=== PATIENT | female | born 1955 ===

== ENCOUNTER 2019-03-17 12:13 | Emergency (ER) | payer SELFPAY ==
[2019-03-17] MEDS ORDERED: NS 0.9% 1000 ML** 1,000 ML IV ONE (13:09)
--- NOTE | 2019-03-17 13:27 | ED ---
Complex/Multi-Sys Presentation - HPI Summary HPI Summary: 63 year old F presenting to [facility] from home where she lives with her accompanied by complains of feeling stressed, eating poorly, sleeping poorly since several months ago, worse since today 03/17/19. The patient rates the pain 0/10 in severity. Symptoms aggravated by nothing. Symptoms alleviated by nothing. Patient reports red area on her left lower abdomen from hot water bottle that she has been using to keep her abdomen warm. Patient reports depression. Patient states that Dr. Carrillo, her primary care provider, prescribed her Trintellix this week. Patient has taken a portion of 2 tabs of Trintellix twice and stopped because she didn't like the way it made her and she didn't feel that it was helping. She denies hx depression. She states that money and "things going on in the family" are making her depressed. She denies suicidal ideation and denies hx suicidal attempt. Patient states that she is eating enough. She had eggs, hot chocolate, two pieces of toast this morning which is less than she normally eats. She did not eat lunch. She denies recent weight loss. Patient has been trying to exercise. She teaches martial arts. Patient goes to work every day. Patient feels sleepy after eating and she denies abdominal pain after eating. Patient has hx trigeminal neuralgia for which she treats with acupuncture and indomethacin. However pt could not recall the name of indomethacin, and when pharmacy was called, pt has not filled the indomethacin since December 2017. Patient has hx intermittent heart murmur since childhood. Patient states she drinks 1-2 glasses of red wine once or twice a month. Patient is a former smoker who smoked 1-2 cigarettes to 1 pack per day for 20 years and quit in 1995. Patient denies illicit drug use. Pt's Surgical Hx is tonsillectomy and surgery on a hematoma on her right thigh. Patient does not know Family hx because she was adopted. Of note, came to ED room, part way into room, and pt asked to leave when I started summarizing pt' s complaints to see if he had anything to add. I was talking about pt's depression and summarizing those complaints and said that "she is not suicidal" . Pt interrupted me at that point, and asked her to leave. Vital signs while in room: HR 55 bpm, BP 179/81, O2 sat 97% - History Of Current Complaint Chief Complaint: EDGeneral Time Seen by Provider: 03/17/19 13:08 Hx Obtained From: Patient Onset/Duration: Gradual Onset, Lasting Weeks - several months, Still Present, Worse Since - today 03/17/19 Timing: Constant Severity Currently: None Severity Initially: Mild Location: Pain At: - diffuse, none currently Character: Unable To Describe Aggravating Factor(s): Nothing Alleviating Factor(s): Nothing Associated Signs And Symptoms: Positive: Decreased Oral Intake, Recent Medication Changes - stopped after 2 half pills of Trintellix, Other - red area on her left lower abdomen, depression; sleep and eating disturbance NEG: SI, recent weight loss - Allergies/Home Medications Allergies/Adverse Reactions: Allergies Allergy/AdvReac Type Severity Reaction Status Date / Time eucalyptus Allergy Itching Verified 03/17/19 12:38 Penicillins Allergy Rash Verified 03/17/19 12:38 phenol Allergy Numbness Verified 03/17/19 12:38 PMH/Surg Hx/FS Hx/Imm Hx Previously Healthy: No Endocrine/Hematology History: Denies: Hx Diabetes, Hx Thyroid Disease Cardiovascular History: Reports: Hx Hypertension, Other Cardiovascular Problems/ Disorders - hx intermittent heart murmur since childhood Respiratory History: Denies: Hx Asthma, Hx Chronic Obstructive Pulmonary Disease (COPD) GI History: Denies: Hx Ulcer Sensory History: Reports: Hx Contacts or Glasses Opthamlomology History: Reports: Hx Contacts or Glasses Psychiatric History: Reports: Hx Depression, Other Psychiatric Issues/Disorders - NEG: Suicidal gesture, or previous ideation Denies: Hx Suicide Attempt - Surgical History Surgery Procedure, Year, and Place: tonsillectomy 1963, removal hematoma right thigh for slipping on water and falling down a flight of stairs 1985 Infectious Disease History: No Infectious Disease History: Denies: Hx Hepatitis, Hx Human Immunodeficiency Virus (HIV), Traveled Outside the [place] in Last 30 Days - Family History Known Family History: Positive: Other - patient was adopted - Social History Lives: With Family Alcohol Use: Rare Alcohol Amount: 1-2 glasses of red wine once or twice a month Hx Substance Use: No Substance Use Type: Reports: None Hx Tobacco Use: Yes Smoking Status (MU): Former Smoker Type: Cigarettes Amount Used/How Often: 1-2 cigarettes to 1 pack per day for 20 years, quit in 1995 Review of Systems Positive: Other - insomnia Cardiovascular: Negative Respiratory: Negative Gastrointestinal: Negative - recent weight loss Positive: Other - eating poorly Positive: no symptoms reported Positive: Myalgia - mild diffuse, not currently Positive: Other - red area (1st degree burn) on her left lower abdomen from using heating pad Neurological: Negative Positive: Depressed, Other - feeling stressed, sleeping poorly; NEG: SI All Other Systems Reviewed And Are Negative: Yes Physical Exam - Summary Physical Exam Summary: Appearance: Well-appearing, mild diffuse pain distress, well-nourished Skin: Warm, color reflects adequate perfusion, dry, mild red blotchy area on her left lower abdomen consistent with first degree burn from hot water bottle Head: Normal Head/Face inspection, atraumatic Eyes: Conjunctiva clear ENT: Normal inspection Neck: Supple, no nodes, no JVD Respiratory: Lungs clear, normal breath sounds, no respiratory distress Cardio: RRR, No murmur, pulses normal, brisk capillary refill Abdomen: Soft, nontender Bowel sounds: Present Musculoskeletal: Strength Intact/ROM intact, no calf tenderness, no edema. Psychological: Depressed affect Neuro: Alert, muscle tone normal, no focal deficit Triage Information Reviewed: Yes Vital Signs On Initial Exam: Initial Vitals Temp Pulse Resp BP Pulse Ox 98.7 F 57 16 186/87 97 03/17/19 12:34 03/17/19 12:34 03/17/19 12:34 03/17/19 12:34 03/17/19 12:34 Vital Signs Reviewed: Yes Diagnostics - Vital Signs Vital Signs Temp Pulse Resp BP Pulse Ox 03/17/19 12:34 98.7 F 57 16 186/87 97 - Laboratory Result Diagrams: 03/17/19 13:28 03/17/19 13:28 Lab Statement: Any lab studies that have been ordered have been reviewed, and results considered in the medical decision making process. - EKG 1315 Cardiac Rate: Bradycardia EKG Rhythm: Sinus Bradycardia ST Segment: Non-Specific Ectopy: None EKG Comparison: No Significant Change - 03/24/14 Summary of EKG Findings: An EKG at 13:15 reveals Sinus bradycardia, nml AV/IV CT , nml QTc, and nml axis. No acute changes. ED has reviewed and interpreted this EKG. Re-Evaluation - Re-Evaluation First Eval Re-Evaluation Time: 15:28 Change: Improved Comment: Pain is a 7 in trigeminal neuralgia. She agrees to accept Toradol. She is concerned about the cost because she has no insurance. Complex Multi-Symp Course/Dx Course Of Treatment: 63 yo F with hx HTN (untreated), trigeminal neuralgia, and intermittent cardiac murmur since childhood, presents with sxs of stress, poor appetite, poor sleep, diffuse myalgias. Pt tried 2 half pills of Trintellix samples from Dr. Carrillo and didn't continue them because she didn't like how they made her feel, and didn't think they helped. Pt doesn't like to take any prescribed medications. Patient medications reviewed this visit. Nurses notes reviewed. Allergies noted. High blood pressure noted. Per nurse's note, "spoke with avionics technician at [facility] to get med list. Per staff reports, pt has had no meds filled since 12/2017. Pt stated during assessment that she is "concerned over side effects". Pharmacy staff reports only med ever filled was indomethacin 50 mg TID." (which pt states she used for trigeminal neuralgia.). An EKG at 13:15 reveals sinus bradycardia at 55 BPM, nml AV/IV CT, nml QTc, and nml axis. Non-specific ST segment. None ectopy. No acute changes. Similar to previous EKG on 03/24/14. Test results with no significant abnormalities. Two blood tests that are pending at the time of discharge are Bairon Peters titer and Lyme serologies. In the ED course, the patient was given 1 L IV fluids, and ketorolac 15mg IV for left trigeminal neuralgia pain. Pt was concerned about the cost of her care, because she did not have insurance. The patient had a sandwich and drink at 14:08 per nurse's note. Pt had bradycardia to 46 observed on the americ[employer] board certified orthotist, associated with hypertension. Pt was asymptomatic with this. Pt's heart rate was primarily in the 50's when observed in the ED. Patient feels better and would like to go home. Patient will be discharged home with follow up from Dr. Carrillo, her primary care provider, in 2 days. Patient was instructed to return to ED for new or worsening symptoms. Patient understands and is agreeable to this discharge plan. - Diagnoses Provider Diagnoses: Malaise, Trigeminal neuralgia, Poorly-controlled hypertension, Sinus bradycardia seen on [employer] board certified orthotist, Sinus bradycardia on ECG Discharge - Sign-Out/Discharge Documenting (check all that apply): Patient Departure - Discharge home Patient Received Moderate/Deep Sedation with Procedure: No - Discharge Plan Condition: Stable Disposition: HOME Prescriptions: Indomethacin CAP* [Indocin CAP*] 25 mg PO TID PRN #15 cap PRN Reason: Pain Patient Education Materials: Trigeminal Neuralgia (ED), Fatigue (ED) Referrals: Braden Carrillo MD [Primary Care Provider] - 2 Days Additional Instructions: Your labs did not show any emergency condition today. Specifically your glucose was 95 (not low) and your thyroid level (TSH was normal). The labs will print out with these discharge papers. Please bring all of these papers to Dr. Carrillo. We know you have a scheduled appointment with Dr. Carrillo on April 05 , [address] Dr. Leal feels that you need to see Dr. Carrillo this week, especially for your bradycardia (slow heart rate, as slow as 46-You EKG showed a rate of 55 and was otherwise normal) and your hypertension (179/81, and 186/87 when first in the ER, then 120/61 prior to discharge, which is not hypertension). Dr. Carrillo just needs to know that you had those very elevated blood pressures. We believe that the medication you were trying to think of that was prescribed for your trigeminal neuralgia was indomethacin, which is a nonsteroidal anti-inflammatory medication, similar to ibuprofen or Aleve. At the time of discharge we gave you Toradol (ketorolac) 15mg IV for the pain of your trigeminal neuralgia. You declined anything stronger. Dr. Leal prescribed 5 days worth of indomethacin 25mg three times a day that you may try again for the pain. When we called the [facility] at [facility] they told us that you have not filled any medications since December 2017. There are two blood tests that are pending at the time of your discharge are Bairon Peters titer that is associated with chronic fatigue, and also Lyme serologies because Lyme disease is so prevalent in this area, even without a recalled tick exposure. Please return to the emergency department for new or worsening symptoms. - Billing Disposition and Condition Condition: STABLE Disposition: Home - Attestation Statements Document Initiated by Scribe: Yes Documenting Scribe: Cristiana Austin Provider For Whom Timboe is Documenting (Include Credential): MD Aide [employer] Attestation: ICristiana, scribed for Domonique Leal MD on 03/19/19 at 2059. Scribe Documentation Reviewed: Yes Provider Attestation: The documentation as recorded by the scribeCristiana accurately reflects the service I personally performed and the decisions made by me, Domonique Leal MD Status of Scribe Document: Viewed
[2019-03-17 13:50] LABS: ABS Basophils 0.1 10^3/ul (0-0.2); ABS Eosinophils 0.1 10^3/ul (0-0.6); ABS Lymphocytes 1.4 10^3/ul (1.0-4.8); ABS Monocytes 0.7 10^3/ul (0-0.8); ABS Neutrophils 6.9 10^3/ul (1.5-7.7); Hematocrit 41 % (35-47); Hemoglobin 13.9 g/dL (12.0-16.0); Lymphocyte % 15.3 %; Mean Corpuscular HGB Conc 34 g/dL (31-36); Mean Corpuscular Hemoglobin 29 pg (27-31); Mean Corpuscular Volume 86 fL (80-97); Platelet Count 251 10^3/uL (150-450); Red Blood Count 4.74 10^6 /uL (3.70-4.87); Red Cell Distribution Width 14 % (10-15); White Blood Count 9.1 10^3/uL (3.5-10.8)
[2019-03-17 13:54] LABS: INR 0.96 (0.82-1.09)
[2019-03-17 14:01] LABS: Albumin/Globulin Ratio 1.5 (1-3); BUN/Creatinine Ratio 26.4 (8-20); C Reactive Protein 1.77 mg/L (<8.01); Calcium 9.3 mg/dL (8.6-10.3); EGFR African American 98.7 (>60); EGFR Non-African American 81.6 (>60); Globulin 2.6 g/dL (2-4); Magnesium 2.1 mg/dL (1.9-2.7); Potassium 3.9 mmol/L (3.5-5.0); Total Bilirubin 0.4 mg/dL (0.2-1.0); Total Protein 6.6 g/dL (6.4-8.9)
[2019-03-17 14:39] LABS: TSH (Thyroid Stimulating Horm) 1.18 mcIU/mL (0.34-5.60)
[2019-03-17] MEDS ORDERED: Ketorolac INJ* 30 MG/ML 1 ML VIAL IV PUSH ONE (15:37)
[2019-03-17 15:53] VITALS: BP 122/77
[2019-03-19 13:57] LABS: EBV Capsid Ag IgG Ab Positive (Negative); EBV Capsid Ag IgM Ab Negative (Negative); Epstein-Barr Nuclear Antigen Positive (Negative)
== END 2019-03-17 15:53 | disposition home or self-care (01) ==
LOC: ED 12:13
DX: R53.81 Other malaise (principal); G50.0 Trigeminal neuralgia; I10 Essential (primary) hypertension; R00.1 Bradycardia, unspecified; Z87.891 Personal history of nicotine dependence
CPT/HCPCS: 36415; 80053; 83605; 83735; 84443; 84484; 85025; 85610; 86140; 86308; 86618; 86664; 86665; 93005; 96361; 96374; 99282; J1885